=== PATIENT | female | born 1980 | race Caucasian/White ===

== ENCOUNTER 2017-08-11 20:19 | Emergency (ER) | payer OTHER ==
[2017-08-11 20:46] VITALS: BP 133/83
--- NOTE | 2017-08-11 21:09 | ED ---
Skin Complaint - HPI Summary HPI Summary: 37 yr old female with non painful, non puritic rash since monday this week. She had onset of fever, chills with tmax 101 on Monday and then nausea and vomiting times three same day. Mild cough. She feels absolutely fine right now, but was concerned that the rash is on her feet, arms, legs trunk palms, soles and dorsum hands and feet. She does not know of ill exposures. She is concerned she could be infections. She denies headache, neck stiffness, light sensitivity, sore throat, SOB, abdominal pain, diarrhea, dysuria, frequency, vaginal bleeding and dysuria. Denies joint pain or swelling. - History of Current Complaint Chief Complaint: UCSkin Time Seen by Provider: 08/11/17 20:53 Stated Complaint: SKIN COMPLAINT Hx Last Menstrual Period: Depo Provera Pain Intensity: 0 - Allergy/Home Medications Allergies/Adverse Reactions: Allergies Allergy/AdvReac Type Severity Reaction Status Date / Time pollen Allergy Headache Uncoded 08/11/17 20:46 Home Medications: Home Medications Depo Provera 1 inj SEE INSTRUCTIONS 08/11/17 [History Confirmed 08/11/17] PMH/Surg Hx/FS Hx/Imm Hx Infectious Disease History: No Infectious Disease History: Denies: Traveled Outside the [place] in Last 30 Days - Family History Known Family History: Positive: Cardiac Disease - Social History Alcohol Use: None Substance Use Type: Reports: None Smoking Status (MU): Never Smoked Tobacco Review of Systems Positive: Fever, Chills - 4 days ago; non since Positive: Cough - four days ago only Positive: Vomiting, Nausea - four days ago, non since Positive: Rash All Other Systems Reviewed And Are Negative: Yes Physical Exam Triage Information Reviewed: Yes Vital Signs On Initial Exam: Initial Vitals Temp Pulse Resp BP Pulse Ox 98.1 F 98 16 133/83 100 08/11/17 20:39 08/11/17 20:39 08/11/17 20:39 08/11/17 20:39 08/11/17 20:39 Vital Signs Reviewed: Yes Appearance: Positive: Well-Appearing, No Pain Distress Skin: Positive: Other - palpaple macular papular rash that is red. Head/Face: Positive: Normal Head/Face Inspection Eyes: Positive: EOMI ENT: Positive: Pharyngeal erythema, TMs normal Neck: Positive: Nontender Respiratory/Lung Sounds: Positive: Clear to Auscultation, Breath Sounds Present Cardiovascular: Positive: RRR. Negative: Murmur Abdomen Description: Positive: Nontender Musculoskeletal: Positive: Strength/ROM Intact Neurological: Positive: Sensory/Motor Intact, Alert, Oriented to Person Place, Time, CN Intact II-III Psychiatric: Positive: Normal Diagnostics - Vital Signs Vital Signs Temp Pulse Resp BP Pulse Ox 08/11/17 20:39 98.1 F 98 16 133/83 100 - Laboratory Lab Statement: Any lab studies that have been ordered have been reviewed, and results considered in the medical decision making process. Course/Dx - Course Course Of Treatment: 37 yr old well appearing with likely hand foot mouth cocsakie infection. - Diagnoses Provider Diagnoses: Coxsackie virus infection, Rash in adult Discharge - Sign-Out/Discharge Documenting (check all that apply): Discharge/Admit/Transfer - Discharge Plan Condition: Good Disposition: HOME Patient Education Materials: Acute Rash (ED), Hand, Foot, and Mouth Disease (ED ) Forms: *Work Release Referrals: No Primary Care Phys,NOPCP [Primary Care Provider] - 2 Days [facility] PHYSICIAN REFERRAL [Outside] - Billing Disposition and Condition Condition: GOOD Disposition: HOME
== END 2017-08-11 21:23 | disposition home or self-care (01) ==
LOC: UCCORT 20:19
DX: R21 Rash and other nonspecific skin eruption (principal); B34.1 Enterovirus infection, unspecified
CPT/HCPCS: 99211; G0463